=== PATIENT | female | born 1990 | race Caucasian/White ===

== ENCOUNTER 2017-03-24 06:11 | Inpatient (IN) | payer BC ==
[2017-03-24] MEDS ORDERED: Misoprostol 50 MCG (1/2 of 100 MCG) Tab ONE (08:17)
[2017-03-24] MEDS ORDERED: Sodium Chloride 0.9% 10 ML Syringe FLUSH PRN (08:45)
[2017-03-24] MEDS ORDERED: Acetaminophen 325 MG Tab PO PRN (08:45)
[2017-03-24] MEDS ORDERED: Ondansetron 4 MG/2 ML SDV IV PRN (08:45)
[2017-03-24] MEDS ORDERED: Clindamycin Phosphate 900 MG/6 ML SDV IV SCH (08:45)
[2017-03-24] MEDS ORDERED: Misoprostol 50 MCG (1/2 of 100 MCG) Tab VAG ONE (09:00)
[2017-03-24] MEDS ORDERED: Lactated Ringers 1,000 ML IV SCH (09:00)
--- NOTE | 2017-03-24 09:02 | PCM.LDHP ---
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 ovarian cyst history of. fibrous breast tissue Musculoskeletal History: Reports: Other (See Below) Other Musculoskeletal History: fracture left ring finger Neurological History: Reports: Concussion Psychiatric History: Reports: Anxiety, Depression, PTSD Hematologic History: Reports: Anemia - Infectious Disease History Infectious Disease History: Reports: Chicken Pox - Past Surgical History Neurological Surgical History: Reports: None Oncologic Surgical History: Reports: None Social & Family History - Family History Family Medical History: Noncontributory Cardiac: Reports: Heart Murmur Oncologic: Reports: Cervix, Lung - Tobacco Use Smoking Status *Q: Former Smoker Years of Tobacco use: 3 Used Tobacco, but Quit: Yes Month Tobacco Last Used: 3 years ago Second Hand Smoke Exposure: No - Caffeine Use Caffeine Use: Reports: Coffee Other Caffeine Use: minimal <8oz - Recreational Drug Use Recreational Drug Use: No H&P Review of Systems - Review of Systems: Review Of Systems: See Below General: Reports: No Symptoms HEENT: Reports: No Symptoms Pulmonary: Reports: No Symptoms Cardiovascular: Reports: No Symptoms Gastrointestinal: Reports: No Symptoms Genitourinary: Reports: No Symptoms Musculoskeletal: Reports: No Symptoms Skin: Reports: No Symptoms Psychiatric: Reports: Anxiety Neurological: Reports: No Symptoms Hematologic/Lymphatic: Reports: No Symptoms Immunologic: Reports: No Symptoms L&D Exam - Exam Exam: See Below - Vital Signs Weight: 80.286 kg - Montes Score Montes Score Cervix Position: Anterior Montes Score Consistency: Soft Montes Score Effacement: 51-70% Montes Score Dilation: 1-2 cm Montes Score Infant's Station: -2 Montes Score Total: 8 - Exam General: Alert, Oriented HEENT: PERRLA, Conjunctiva Clear, EACs Clear, EOMI, Hearing Intact, Mucosa Moist & [place], Nares Patent, Normal Nasal Septum, Posterior Pharynx Clear, TMs Clear Neck: Supple, Trachea Midline Lungs: Clear to Auscultation, Normal Respiratory Effort Cardiovascular: Regular Rate, Regular Rhythm GI/Abdominal Exam: Normal Bowel Sounds, Soft, Non-Tender, No Organomegaly, No Distention, No Abnormal Bruit, No Mass, Pelvis Stable Rectal Exam: Normal Exam, Normal Rectal Tone Genitourinary: Normal external exam, Normal bimanual exam, Normal speculum exam Back Exam: Normal Inspection, Full Range of Motion Extremities: Normal Inspection, Normal Range of Motion, Non-Tender, No Pedal Edema, Normal Capillary Refill Skin: Warm, Dry, Intact Neurological: Cranial Nerves Intact, Reflexes Equal Bilateral Psychiatric: Alert, Normal Affect, Normal Mood - Patient Data Lab Results Last 24 hrs: Laboratory Results - last 24 hr 03/24/17 Range/Units 06:27 Urine Color Yellow Urine Appearance Cloudy Urine pH 6.0 (4.5-8.0) Ur Specific [place] 1.020 (1.008-1.030) Urine Protein Negative (NEGATIVE) mg/dL Urine Glucose (UA) Normal (NEGATIVE) mg/dL Urine Ketones 15 H (NEGATIVE) mg/dL Urine Occult Blood Negative (NEGATIVE) Urine Nitrite Negative (NEGATIVE) Urine Bilirubin Negative (NEGATIVE) Urine Urobilinogen Normal (NORMAL) mg/dL Ur Leukocyte Esterase Moderate (NEGATIVE) Urine RBC 0-5 (0-5) Urine WBC 0-5 (0-5) Ur Epithelial Cells Moderate Amorphous Sediment Few Urine Bacteria Many Urine Mucus Few - Problem List (1) SNOMED Code(s): 43183395 ICD Code: Z34.90 - ENCNTR FOR SUPRVSN OF NORMAL , UNSP, UNSP TRIMESTER Status: Acute Current Visit: Yes (2) Elective induction of labor planned SNOMED Code(s): 234248723 ICD Code: LYF0414 - Status: Acute Current Visit: Yes (3) Post-dates SNOMED Code(s): 52792504 ICD Code: O48.0 - POST-TERM Status: Acute Current Visit: Yes Qualifiers: Post-term type: 40-42 weeks gestation Qualified Code(s): O48.0 - Post-term Problem List Initiated/Reviewed/Updated: Yes Orders Last 24hrs: Active Orders 24 hr Category Date Time Status Patient Status [ADT] Routine ADT 03/24/17 08:45 Ordered Ambulate [RC] PER UNIT ROUTINE Care 03/24/17 08:45 Ordered Communication Order [RC] ASDIRECTED Care 03/24/17 08:45 Ordered Heart Tones [RC] PER UNIT ROUTINE Care 03/24/17 08:45 Ordered Notify Provider Vital Signs [RC] PRN Care 03/24/17 08:45 Ordered Notify Provider [RC] PRN Care 03/24/17 08:45 Ordered Up ad [place] [RC] ASDIRECTED Care 03/24/17 08:45 Ordered VTE/DVT Education [RC] Click to Edit Care 03/24/17 08:53 Ordered Vaccines to be Administered [RC] PER UNIT ROUTINE Care 03/24/17 08:53 Active Vital Signs [RC] PER UNIT ROUTINE Care 03/24/17 08:45 Ordered Regular Diet [DIET] Diet 03/24/17 Breakfast Ordered CBC WITH AUTO DIFF [HEME] Routine Lab 03/24/17 08:45 Ordered DRUG SCREEN, URINE [URCHEM] Routine Lab 03/24/17 08:45 Uncollected UA W/MICROSCOPIC [URIN] Routine Lab 03/24/17 08:45 Uncollected Acetaminophen [Tylenol] Med 03/24/17 08:45 Ordered 650 mg PO Q4H PRN Clindamycin Phosphate [Cleocin] Med 03/24/17 08:45 Ordered 900 mg IV Q8H Diphth,Pertuss(Acell),Tet Vac [Adacel] Med 03/24/17 08:52 Once 0.5 ml IM .ONCE ONE Lactated Ringers [Ringers, Lactated] 1,000 ml Med 03/24/17 09:00 Ordered IV ASDIRECTED Misoprostol [Cytotec] Med 03/24/17 08:54 Once 50 mcg VAG ONETIME ONE Ondansetron [Zofran] Med 03/24/17 08:45 Ordered 4 mg IV Q4H PRN Sodium Chloride 0.9% [Saline Flush] Med 03/24/17 08:45 Ordered 10 ml FLUSH ASDIRECTED PRN DVT/VTE Prophylaxis Reflex [OM.PC] Routine Oth 03/24/17 08:45 Ordered Saline Lock Insert [OM.PC] Routine Oth 03/24/17 08:45 Ordered Resuscitation Status Routine Resus Stat 03/24/17 08:45 Ordered Medication Orders Acetaminophen (Tylenol) 650 mg PO Q4H PRN PRN Reason: Pain (Mild 1-3) and fever Clindamycin Phosphate (Cleocin) 900 mg IV Q8H JONAH Diphtheria/Tetanus/Acell Pertussis (Adacel) 0.5 ml IM .ONCE ONE Stop: 03/24/17 08:53 Lactated Ringer's (Ringers, Lactated) 1,000 mls @ 125 mls/hr IV ASDIRECTED JONAH Misoprostol (Cytotec) 50 mcg VAG ONETIME ONE Stop: 03/24/17 08:55 Ondansetron HCl (Zofran) 4 mg IV Q4H PRN PRN Reason: Nausea/Vomiting Sodium Chloride (Saline Flush) 10 ml FLUSH ASDIRECTED PRN PRN Reason: Keep Vein Open Assessment/Plan Comment:: 03/24/2017 26 yo here at 41 0/7 weeks gestation for a planned elective induction of labor for postdates SVE-1/60/-2 Cytotec 50mcg placed @ 0825 Bishops-8 Plan- Monitor for active labor Up and about Intermittent monitoring Pain management per patient request GBS positive-Clindamycin ever 8hrs till delivered Plan and anticipate a vaginal delivery
[2017-03-24] MEDS: Clindamycin Phosphate 900 MG in Sodium Chloride 0.9% 100 ML IV SCH ×2 (09:44→16:31)
[2017-03-24] MEDS ORDERED: Diphtheria,Pertussis(Acell),Tetanus Vaccine 0.5 ML SDV IM ONE (09:45)
[2017-03-24] MEDS ORDERED: Misoprostol 25 MCG (1/4 of 100 MCG) Tab ONE (12:44)
[2017-03-24] MEDS ORDERED: Misoprostol 25 MCG (1/4 of 100 MCG) Tab VAG ONE (13:05)
--- NOTE | 2017-03-24 13:12 | PCM.PNLD ---
Labor Progress Note - VS & Meds Vital Signs: Last Vital Signs Temp 35.4 C 03/24/17 10:30 Pulse 90 03/24/17 10:30 Resp 16 03/24/17 10:30 BP 120/66 03/24/17 10:30 Pulse Ox 96 03/24/17 10:30 Active Medications: Current Medications Acetaminophen (Tylenol) 650 mg PO Q4H PRN PRN Reason: Pain (Mild 1-3) and fever Lactated Ringer's (Ringers, Lactated) 1,000 mls @ 125 mls/hr IV ASDIRECTED [facility] Last Admin: 03/24/17 09:20 Dose: 125 mls/hr Clindamycin Phosphate 900 mg/ (Sodium Chloride) 106 mls @ 200 mls/hr IV Q8H [facility] Last Admin: 03/24/17 09:44 Dose: 200 mls/hr Misoprostol (Cytotec) 25 mcg VAG ONETIME ONE Stop: 03/24/17 13:06 Last Admin: 03/24/17 12:45 Dose: 25 mcg Ondansetron HCl (Zofran) 4 mg IV Q4H PRN PRN Reason: Nausea/Vomiting Sodium Chloride (Saline Flush) 10 ml FLUSH ASDIRECTED PRN PRN Reason: Keep Vein Open Discontinued Medications Diphtheria/Tetanus/Acell Pertussis (Adacel) 0.5 ml IM .ONCE ONE Stop: 03/24/17 09:46 Last Admin: 03/24/17 09:45 Dose: 0.5 ml Misoprostol (Cytotec) Confirm Administered Dose 50 mcg .ROUTE .STK-MED ONE Stop: 03/24/17 08:18 Last Admin: 03/24/17 09:19 Dose: Not Given Misoprostol (Cytotec) 50 mcg VAG ONETIME ONE Stop: 03/24/17 09:01 Last Admin: 03/24/17 08:25 Dose: 50 mcg Misoprostol (Cytotec) Confirm Administered Dose 25 mcg .ROUTE .STK-MED ONE Stop: 03/24/17 12:45 - Uterine Contractions Uterine Monitoring Mode: External [place] Contraction Frequency (min): 2-6 Contraction Duration (sec): 30- Contraction Intensity: Mild to Moderate Uterine Resting Tone: Soft - Vaginal Exam Dilation (cm): 1 Effacement (Percent): 60 Station: -2 Cervical Position: Anterior Sterile Vaginal Exam Performed By: Deann Bates - Labor Progress (Free Text) Labor Progress: 03/24/2017 Patient remains unchanged SVE Contractions still irregular at times FHTs category one Second cytotec this one 25mcg placed at this time Patient tolerating pain with movement and position change Plan- Continue to monitor for active labor Continue to monitor FHTs Pain management per patient request Plan and anticipate a vaginal delivery
[2017-03-24] MEDS ORDERED: ePHEDrine 50 MG/ML SDV ONE ×2 (16:10→16:13)
[2017-03-24] MEDS ORDERED: Ropivacaine 100 ML ONE (16:19)
[2017-03-24] MEDS ORDERED: Acetaminophen/HYDROcodone 325-5 MG Tab PO PRN (17:35)
[2017-03-24] MEDS ORDERED: Lanolin 100% Cream 40 GM Tube TOP PRN (17:35)
[2017-03-24] MEDS ORDERED: Witch Hazel Medicated Pads 100/Jar TOP PRN (17:35)
[2017-03-24] MEDS ORDERED: Docusate Sodium 100 MG Cap PO PRN (17:35)
[2017-03-24] MEDS ORDERED: Ibuprofen 200 MG Tab, 24 Tab Bulk Bottle PO PRN (17:35)
[2017-03-24] MEDS ORDERED: Ibuprofen 600 MG Tab PO PRN (17:35)
[2017-03-24] MEDS ORDERED: Benzocaine 20% Top Spray 56 GM Bottle TOP PRN (17:35)
[2017-03-24] MEDS ORDERED: Acetaminophen 325 MG Tab, 50 Tab Bulk Bottle PO PRN (17:35)
--- NOTE | 2017-03-24 18:11 | PCM.DEL ---
L & D Note - General Info Date of Service: 03/24/17 Mother's Due Date: 03/17/17 - Delivery Note Delivery Outcome: Livebirth Infant Delivery Method: Spontaneous Vaginal Delivery-Single Delivery Mode: Spontaneous Presentation: Right Occiput Anterior (SACHA) Nuchal Cord: None Anesthesia Type: Epidural Amniotic Fluid Description: Clear Laceration: None Placenta: Intact, Spontaneous, Meconium Stained (lightly) Cord: 3 Vessels [place]: Bulb Syringe, Stimulated, Warmed Second Stage Interventions: Reports: Encouragement Given, Pushing Effectively Delivery Comments (Free Text/Narrative):: 03/24/2017 26 yo at 41 0/7 gestational weeks delivered a viable female infant in SACHA position at 1717 on 03/24/2017 over an intact perineum, no nuchal cord. APGARS- 9/9/10, Weight-8lbs 4oz, Length-19.8inches, was placed on prewarmed blanket on mother abdomen, then stimulated, dried, warmed, and bulb suctioned before crying vigorously. Placenta spontaneous intact, three vessel cord. EBL- 300. No lacerations noted of perineum, vagina, cervix, or rectum. Infant now skin to skin and stable with mother in labor and delivery room. - General Info Date of Service: 03/24/17 Functional Status: Reports: Pain Controlled - Review of Systems General: Reports: No Symptoms HEENT: Reports: No Symptoms Pulmonary: Reports: No Symptoms Cardiovascular: Reports: No Symptoms Gastrointestinal: Reports: No Symptoms Genitourinary: Reports: No Symptoms Musculoskeletal: Reports: No Symptoms Skin: Reports: No Symptoms Neurological: Reports: No Symptoms Psychiatric: Reports: No Symptoms - Patient Data Vitals - Most Recent: Last Vital Signs Temp 35.6 C 03/24/17 12:50 Pulse 81 03/24/17 14:56 Resp 18 03/24/17 14:56 BP 137/72 03/24/17 14:56 Pulse Ox 96 03/24/17 14:56 Weight - Most Recent: 80.286 kg I&O - Last 24 Hours: Intake & Output 03/24/17 03/24/17 03/24/17 06:59 14:59 22:59 Intake Total 100 Balance 100 Lab Results Last 24 Hours: Laboratory Results - last 24 hr 03/24/17 03/24/17 03/24/17 Range/Units 06:27 08:45 08:56 WBC 11.1 H (4.5-11.0) K/uL RBC 3.88 (3.30-5.50) M/uL Hgb 10.9 L (12.0-15.0) g/dL Hct 33.0 L (36.0-48.0) % MCV 85 (80-98) fL MCH 28 (27-31) pg MCHC 33 (32-36) % Plt Count 179 (150-400) K/uL Neut % (Auto) 74 H (36-66) % Lymph % (Auto) 16 L (24-44) % [place] % (Auto) 10 H (2-6) % Eos % (Auto) 1 L (2-4) % Baso % (Auto) 0 (0-1) % Urine Color Yellow Urine Appearance Cloudy Urine pH 6.0 (4.5-8.0) Ur Specific [place] 1.020 (1.008-1.030) Urine Protein Negative (NEGATIVE) mg/dL Urine Glucose (UA) Normal (NEGATIVE) mg/dL Urine Ketones 15 H (NEGATIVE) mg/dL Urine Occult Blood Negative (NEGATIVE) Urine Nitrite Negative (NEGATIVE) Urine Bilirubin Negative (NEGATIVE) Urine Urobilinogen Normal (NORMAL) mg/dL Ur Leukocyte Esterase Moderate (NEGATIVE) Urine RBC 0-5 (0-5) Urine WBC 0-5 (0-5) Ur Epithelial Cells Moderate Amorphous Sediment Few Urine Bacteria Many Urine Mucus Few Urine Opiates Screen Negative (NEGATIVE) Ur Oxycodone Screen Negative (NEGATIVE) Urine Methadone Screen Negative (NEGATIVE) Ur Propoxyphene Screen Negative (NEGATIVE) Ur Barbiturates Screen Negative (NEGATIVE) Ur Tricyclics Screen Negative (NEGATIVE) Ur Phencyclidine Scrn Negative (NEGATIVE) Ur Amphetamine Screen Negative (NEGATIVE) U Methamphetamines Scrn Negative (NEGATIVE) Urine MDMA Screen Negative (NEGATIVE) U Benzodiazepines Scrn Negative (NEGATIVE) U Cocaine Metab Screen Negative (NEGATIVE) U Marijuana (THC) Screen Negative (NEGATIVE) Med Orders - Current: Current Medications Acetaminophen (Tylenol) 650 mg PO Q4H PRN PRN Reason: Pain (Mild 1-3) and fever Acetaminophen (Tylenol Bulk Bottle) 325 mg PO Q4H PRN PRN Reason: Pain Hydrocodone Bitart/Acetaminophen ([place] 325-5 Mg) 1 tab PO Q4H PRN PRN Reason: Pain (moderate 4-6) Benzocaine (Daaf-L-Hhbcdzw 20% [place]) 0 gm TOP Q4H PRN PRN Reason: Perineal Comfort Measure Docusate Sodium (Colace) 100 mg PO BID PRN PRN Reason: Constipation Emollient Ointment (Lansinoh Hpa) 0 gm TOP ASDIRECTED PRN PRN Reason: Sore Nipples Ferrous Sulfate (Ferrous Sulfate) [facility] Lactated Ringer's (Ringers, Lactated) 1,000 mls @ 125 mls/hr IV ASDIRECTED [facility] Last Admin: 03/24/17 09:20 Dose: 125 mls/hr Clindamycin Phosphate 900 mg/ (Sodium Chloride) 106 mls @ 200 mls/hr IV Q8H [facility] Last Admin: 03/24/17 16:31 Dose: 200 mls/hr Ibuprofen (Motrin Bulk Bottle) 600 mg PO Q6H PRN PRN Reason: Pain Ibuprofen (Motrin) 600 mg PO Q6H PRN PRN Reason: mild pain or fever Ondansetron HCl (Zofran) 4 mg IV Q4H PRN PRN Reason: Nausea/Vomiting Sodium Chloride (Saline Flush) 10 ml FLUSH ASDIRECTED PRN PRN Reason: Keep Vein Open [place] (Tucks) 1 pad TOP ASDIRECTED PRN PRN Reason: Hemorrhoids Discontinued Medications Diphtheria/Tetanus/Acell Pertussis (Adacel) 0.5 ml IM .ONCE ONE Stop: 03/24/17 09:46 Last Admin: 03/24/17 09:45 Dose: 0.5 ml Ephedrine Sulfate (Ephedrine Sulfate) Confirm Administered Dose 50 mg .ROUTE .STK-MED ONE Stop: 03/24/17 16:11 Ephedrine Sulfate (Ephedrine Sulfate) Confirm Administered Dose 50 mg .ROUTE .STK-MED ONE Stop: 03/24/17 16:14 Ropivacaine (Naropin 0.2%) Confirm Administered Dose 100 mls @ as directed .ROUTE .STK-MED ONE Stop: 03/24/17 16:20 Oxytocin/Sodium Chloride (Pitocin In Ns 20 Units/1,000 Ml) Confirm Administered Dose 20 unit in 1,000 mls @ as directed .ROUTE .STK-MED ONE Stop: 03/24/17 17:08 Oxytocin/Sodium Chloride (Pitocin In Ns 20 Units/1,000 Ml) 20 unit in 1,000 mls @ 2,997 mls/hr IV ONETIME ONE; 999 MUNITS/MIN PRN Reason: Protocol Stop: 03/24/17 18:02 Misoprostol (Cytotec) Confirm Administered Dose 50 mcg .ROUTE .STK-MED ONE Stop: 03/24/17 08:18 Last Admin: 03/24/17 09:19 Dose: Not Given Misoprostol (Cytotec) 50 mcg VAG ONETIME ONE Stop: 03/24/17 09:01 Last Admin: 03/24/17 08:25 Dose: 50 mcg Misoprostol (Cytotec) Confirm Administered Dose 25 mcg .ROUTE .STK-MED ONE Stop: 03/24/17 12:45 Last Admin: 03/24/17 13:08 Dose: Not Given Misoprostol (Cytotec) 25 mcg VAG ONETIME ONE Stop: 03/24/17 13:06 Last Admin: 03/24/17 12:45 Dose: 25 mcg - Exam General: Alert, Oriented HEENT: Pupils Equal, Pupils Reactive, EOMI, Mucous Membr. Moist/[place] Neck: Supple Lungs: Clear to Auscultation, Normal Respiratory Effort Cardiovascular: Regular Rate, Regular Rhythm GI/Abdominal Exam: Normal Bowel Sounds, Soft, Non-Tender, No Organomegaly, No Distention, No Abnormal Bruit, No Mass, Pelvis Stable (Female) Exam: Normal External Exam, Normal Speculum Exam, Normal Bimanual Exam Back Exam: Normal Inspection, Full Range of Motion Extremities: Normal Inspection, Normal Range of Motion, Non-Tender, No Pedal Edema, Normal Capillary Refill Skin: Warm, Dry, Intact Wound/Incisions: Healing Well Neurological: No New Focal Deficit Psy/Mental Status: Alert, Normal Affect, Normal Mood - Problem List & Annotations (1) SNOMED Code(s): 88932638 Code(s): Z34.90 - ENCNTR FOR SUPRVSN OF NORMAL , UNSP, UNSP TRIMESTER Status: Acute Current Visit: Yes (2) Elective induction of labor planned SNOMED Code(s): 253786535 Code(s): YXR3144 - Status: Acute Current Visit: Yes (3) Post-dates SNOMED Code(s): 45092686 Code(s): O48.0 - POST-TERM Status: Acute Current Visit: Yes Qualifiers: Post-term type: 40-42 weeks gestation Qualified Code(s): O48.0 - Post-term - Problem List Review Problem List Initiated/Reviewed/Updated: Yes - My Orders Last 24 Hours: My Active Orders 03/24/17 08:45 Patient Status [ADT] Routine Ambulate [RC] PER UNIT ROUTINE Communication Order [RC] ASDIRECTED Notify Provider Vital Signs [RC] PRN Notify Provider [RC] PRN Up ad [place] [RC] ASDIRECTED Vital Signs [RC] PER UNIT ROUTINE Acetaminophen [Tylenol] 650 mg PO Q4H PRN Ondansetron [Zofran] 4 mg IV Q4H PRN Sodium Chloride 0.9% [Saline Flush] 10 ml FLUSH ASDIRECTED PRN DVT/VTE Prophylaxis Reflex [OM.PC] Routine Saline Lock Insert [OM.PC] Routine Resuscitation Status Routine 03/24/17 08:53 VTE/DVT Education [RC] Click to Edit Vaccines to be Administered [RC] PER UNIT ROUTINE 03/24/17 09:00 Clindamycin Phosphate [Cleocin] 900 mg Sodium Chloride 0.9% [Normal Saline] 100 ml IV Q8H Lactated Ringers [Ringers, Lactated] 1,000 ml IV ASDIRECTED 03/24/17 17:35 Acetaminophen [Tylenol Bulk Bottle] 325 mg PO Q4H PRN Acetaminophen/HYDROcodone [[place] 325-5 MG] 1 tab PO Q4H PRN Benzocaine [Yafr-Q-Dacpvrz 20% [place]] See Dose Instructions TOP Q4H PRN Docusate Sodium [Colace] 100 mg PO BID PRN Ibuprofen [Motrin Bulk Bottle] 600 mg PO Q6H PRN Ibuprofen [Motrin] 600 mg PO Q6H PRN Lanolin [Lansinoh HPA] 0 gm TOP ASDIRECTED PRN Witch [place] [Tucks] 1 pad TOP ASDIRECTED PRN Assess Lochia [WOMSER] Per Unit Routine Assess Uterine Involution [WOMSER] Per Unit Routine 03/24/17 17:36 Patient Status [ADT] Routine Vital Signs [RC] PFP Ice Therapy [OM.PC] Per Unit Routine Perineal Care [OM.PC] Per Unit Routine 03/24/17 Breakfast Regular Diet [DIET] 03/25/17 06:00 CBC WITH AUTO DIFF [HEME] Routine 03/25/17 08:00 Ferrous Sulfate 325 mg PO WITHBREAKFAST - Assessment Assessment:: 03/24/2017 26 yo G2 now P2 @ 41 0/7 weeks gestation without complications Labs-GBS positive, B positive, Rubella Immune, RPR nonreactive, HIV negative, Hep B negative - Plan Plan:: 03/24/2017 26 yo here at 41 0/7 weeks gestation for a planned elective induction of labor for postdates SVE-1/60/-2 Cytotec 50mcg placed @ 0825 Bishops-8 Plan- Monitor for active labor Up and about Intermittent monitoring Pain management per patient request GBS positive-Clindamycin ever 8hrs till delivered Plan and anticipate a vaginal delivery 03/24/2017 Routine Cares Support and Encourage Plan discharge at 48hrs due to GBS positive
[2017-03-24] MEDS ORDERED: diphenhydrAMINE 50 MG/ML SDV IVPUSH PRN (19:40)
--- NOTE | 2017-03-24 23:30 | ANES ---
DATE OF SERVICE: 03/24/2017 INDICATIONS: Nerissa is a 26-year-old female, patient of Deann Bates in our OB unit, [facility] #[id number]. Please refer to Deann's note for diagnosis. I was requested to assess to the patient for labor epidural. I reviewed the patient's history as well as risks and benefits of the procedure and lab work, found no contraindication to epidural placement. Consent was received. DESCRIPTION OF PROCEDURE: I had her seated at the edge of the bed. Betadine prep x3 to lumbar region. Sterile drape was placed, 1% lidocaine skin wheal as well as deep at the L3- 4 region. 17-gauge Tuohy was placed to loss of resistance. Negative CSF, negative heme, negative paresthesia. I inserted the catheter to 13 cm. The needle was removed, catheter was secured and test dose was given of 3 mL of 1.5% lidocaine with 1:200,000 epinephrine. Negative sequelae. I then dosed with 12 mL of 0.2% ropivacaine and began an infusion of that same 0.2% ropivacaine. She tolerated the procedure quite well. Please refer to nurse's notes for vital signs and neuro status, which were unchanged. Upon completion, I reported off to nurse and Deann Bates, again, the patient tolerated procedure quite well. Matt Bunch CRNA /[id number]
[2017-03-25] MEDS ORDERED: Acetaminophen 325 MG Tab, 50 Tab Bulk Bottle PO PRN (07:00)
--- NOTE | 2017-03-25 07:57 | PCM.PNPP ---
- General Info Date of Service: 03/25/17 Admission Dx/Problem (Free Text): Patient Status Order with Admit Dx/Problem 03/24/17 08:45 Patient Status [ADT] Routine Admission Diagnosis/Problem Admission Diagnosis/Problem Functional Status: Reports: Pain Controlled - Review of Systems General: Reports: No Symptoms HEENT: Reports: No Symptoms Pulmonary: Reports: No Symptoms Cardiovascular: Reports: No Symptoms Gastrointestinal: Reports: No Symptoms Genitourinary: Reports: No Symptoms Musculoskeletal: Reports: No Symptoms Skin: Reports: No Symptoms Neurological: Reports: No Symptoms Psychiatric: Reports: No Symptoms - General Info Date of Service: 03/25/17 - Patient Data Vital Signs - Most Recent: Last Vital Signs Temp 36.2 C 03/25/17 04:14 Pulse 65 03/25/17 04:14 Resp 16 03/25/17 04:14 BP 119/67 03/25/17 04:14 Pulse Ox 99 03/25/17 04:14 Weight - Most Recent: 80.286 kg I&O - Last 24 Hours: Intake & Output 03/24/17 03/25/17 03/25/17 22:59 06:59 14:59 Intake Total 1436 500 Balance 1436 500 Lab Results - Last 24 Hours: Laboratory Results - last 24 hr 03/24/17 03/24/17 03/25/17 Range/Units 08:45 08:56 06:00 WBC 11.1 H 15.6 H (4.5-11.0) K/uL RBC 3.88 3.63 (3.30-5.50) M/uL Hgb 10.9 L 10.4 L (12.0-15.0) g/dL Hct 33.0 L 30.8 L (36.0-48.0) % MCV 85 85 (80-98) fL MCH 28 29 (27-31) pg MCHC 33 34 (32-36) % Plt Count 179 133 L (150-400) K/uL Neut % (Auto) 74 H 81 H (36-66) % Lymph % (Auto) 16 L 13 L (24-44) % [place] % (Auto) 10 H 6 (2-6) % Eos % (Auto) 1 L 0 L (2-4) % Baso % (Auto) 0 0 (0-1) % Urine Opiates Screen Negative (NEGATIVE) Ur Oxycodone Screen Negative (NEGATIVE) Urine Methadone Screen Negative (NEGATIVE) Ur Propoxyphene Screen Negative (NEGATIVE) Ur Barbiturates Screen Negative (NEGATIVE) Ur Tricyclics Screen Negative (NEGATIVE) Ur Phencyclidine Scrn Negative (NEGATIVE) Ur Amphetamine Screen Negative (NEGATIVE) U Methamphetamines Scrn Negative (NEGATIVE) Urine MDMA Screen Negative (NEGATIVE) U Benzodiazepines Scrn Negative (NEGATIVE) U Cocaine Metab Screen Negative (NEGATIVE) U Marijuana (THC) Screen Negative (NEGATIVE) Med Orders - Current: Current Medications Acetaminophen (Tylenol Bulk Bottle) 325 - 650 mg PO Q4H PRN PRN Reason: Pain Hydrocodone Bitart/Acetaminophen ([place] 325-5 Mg) 1 tab PO Q4H PRN PRN Reason: Pain (moderate 4-6) Benzocaine (Xogz-[id number]-Spzvxni 20% [place]) 0 gm TOP Q4H PRN PRN Reason: Perineal Comfort Measure Diphenhydramine HCl (Benadryl) 25 mg IVPUSH Q6H PRN PRN Reason: ITCHING Docusate Sodium (Colace) 100 mg PO BID PRN PRN Reason: Constipation Emollient Ointment (Lansinoh Hpa) 0 gm TOP ASDIRECTED PRN PRN Reason: Sore Nipples Last Admin: 03/24/17 21:36 Dose: 1 applic Ferrous Sulfate (Ferrous Sulfate) 325 mg PO WITHBREAKFAST [facility] Lactated Ringer's (Ringers, Lactated) 1,000 mls @ 125 mls/hr IV ASDIRECTED [facility] Last Admin: 03/24/17 09:20 Dose: 125 mls/hr Ibuprofen (Motrin Bulk Bottle) 600 mg PO Q6H PRN PRN Reason: Pain Last Admin: 03/24/17 21:36 Dose: 600 mg Ondansetron HCl (Zofran) 4 mg IV Q4H PRN PRN Reason: Nausea/Vomiting Sodium Chloride (Saline Flush) 10 ml FLUSH ASDIRECTED PRN PRN Reason: Keep Vein Open Witch Jeniffer (Tucks) 1 pad TOP ASDIRECTED PRN PRN Reason: Hemorrhoids Discontinued Medications Acetaminophen (Tylenol) 650 mg PO Q4H PRN PRN Reason: Pain (Mild 1-3) and fever Acetaminophen (Tylenol Bulk Bottle) 325 mg PO Q4H PRN PRN Reason: Pain Diphtheria/Tetanus/Acell Pertussis (Adacel) 0.5 ml IM .ONCE ONE Stop: 03/24/17 09:46 Last Admin: 03/24/17 09:45 Dose: 0.5 ml Ephedrine Sulfate (Ephedrine Sulfate) Confirm Administered Dose 50 mg .ROUTE .STK-MED ONE Stop: 03/24/17 16:11 Last Admin: 03/24/17 19:48 Dose: Not Given Ephedrine Sulfate (Ephedrine Sulfate) Confirm Administered Dose 50 mg .ROUTE .STK-MED ONE Stop: 03/24/17 16:14 Last Admin: 03/24/17 19:48 Dose: Not Given Clindamycin Phosphate 900 mg/ (Sodium Chloride) 106 mls @ 200 mls/hr IV Q8H JONAH Last Admin: 03/24/17 16:31 Dose: 200 mls/hr Ropivacaine (Naropin 0.2%) Confirm Administered Dose 100 mls @ as directed .ROUTE .STK-MED ONE Stop: 03/24/17 16:20 Oxytocin/Sodium Chloride (Pitocin In Ns 20 Units/1,000 Ml) Confirm Administered Dose 20 unit in 1,000 mls @ as directed .ROUTE .STK-MED ONE Stop: 03/24/17 17:08 Last Admin: 03/24/17 19:49 Dose: Not Given Oxytocin/Sodium Chloride (Pitocin In Ns 20 Units/1,000 Ml) 20 unit in 1,000 mls @ 2,997 mls/hr IV ONETIME ONE; 999 MUNITS/MIN PRN Reason: Protocol Stop: 03/24/17 18:02 Ibuprofen (Motrin) 600 mg PO Q6H PRN PRN Reason: mild pain or fever Last Admin: 03/24/17 18:47 Dose: 600 mg Misoprostol (Cytotec) Confirm Administered Dose 50 mcg .ROUTE .STK-MED ONE Stop: 03/24/17 08:18 Last Admin: 03/24/17 09:19 Dose: Not Given Misoprostol (Cytotec) 50 mcg VAG ONETIME ONE Stop: 03/24/17 09:01 Last Admin: 03/24/17 08:25 Dose: 50 mcg Misoprostol (Cytotec) Confirm Administered Dose 25 mcg .ROUTE .STK-MED ONE Stop: 03/24/17 12:45 Last Admin: 03/24/17 13:08 Dose: Not Given Misoprostol (Cytotec) 25 mcg VAG ONETIME ONE Stop: 03/24/17 13:06 Last Admin: 03/24/17 12:45 Dose: 25 mcg - Interaction Infant Disposition, : [place] in Room with Family Interaction: Holding Feeding: Breastfed ; Nursed Well Support Person: - Recovery Exam Fundal Tone: Firm Fundal Level: 1 Fingerbreadths Below Umbilicus Fundal Placement: Right Lochia Amount: Small Lochia Color: Rubra/Red Perineum Description: Intact, Minimal Bruising/Swelling Episiotomy/Laceration: None - Exam General: Alert, Oriented HEENT: Pupils Equal Neck: Supple Lungs: Clear to Auscultation, Normal Respiratory Effort Cardiovascular: Regular Rate, Regular Rhythm GI/Abdominal Exam: Normal Bowel Sounds, Soft, Non-Tender, No Organomegaly, No Distention, No Abnormal Bruit, No Mass, Pelvis Stable Extremities: Normal Inspection, Normal Range of Motion, Non-Tender, No Pedal Edema, Normal Capillary Refill Skin: Warm, Dry, Intact Neurological: No New Focal Deficit Psy/Mental Status: Alert, Normal Affect, Normal Mood - Problem List & Annotations (1) SNOMED Code(s): 57832415 Code(s): Z34.90 - ENCNTR FOR SUPRVSN OF NORMAL , UNSP, UNSP TRIMESTER Status: Acute Current Visit: Yes (2) Elective induction of labor planned SNOMED Code(s): 283683435 Code(s): JRH0357 - Status: Acute Current Visit: Yes (3) Post-dates SNOMED Code(s): 86449987 Code(s): O48.0 - POST-TERM Status: Acute Current Visit: Yes Qualifiers: Post-term type: 40-42 weeks gestation Qualified Code(s): O48.0 - Post-term (4) () SNOMED Code(s): 095801380 Code(s): Z78.9 - OTHER SPECIFIED HEALTH STATUS Status: Acute Current Visit: Yes (5) Normal vaginal delivery SNOMED Code(s): 78375466 Code(s): O80 - ENCOUNTER FOR FULL-TERM UNCOMPLICATED DELIVERY Status: Acute Current Visit: Yes (6) Positive GBS test SNOMED Code(s): 4737557505144 Code(s): B95.1 - STREPTOCOCCUS, GROUP B, CAUSING DISEASES CLASSD ELSWHR Status: Acute Current Visit: Yes - Problem List Review Problem List Initiated/Reviewed/Updated: Yes - My Orders Last 24 Hours: My Active Orders 03/24/17 08:45 Patient Status [ADT] Routine Ambulate [RC] PER UNIT ROUTINE Notify Provider Vital Signs [RC] PRN Notify Provider [RC] PRN Up ad [place] [RC] ASDIRECTED Vital Signs [RC] Q4H Ondansetron [Zofran] 4 mg IV Q4H PRN Sodium Chloride 0.9% [Saline Flush] 10 ml FLUSH ASDIRECTED PRN DVT/VTE Prophylaxis Reflex [OM.PC] Routine Saline Lock Insert [OM.PC] Routine Resuscitation Status Routine 03/24/17 08:53 VTE/DVT Education [RC] Click to Edit Vaccines to be Administered [RC] PER UNIT ROUTINE 03/24/17 09:00 Lactated Ringers [Ringers, Lactated] 1,000 ml IV ASDIRECTED 03/24/17 17:35 Acetaminophen/HYDROcodone [[place] 325-5 MG] 1 tab PO Q4H PRN Benzocaine [Pown-K-Tandxrj 20% [place]] See Dose Instructions TOP Q4H PRN Docusate Sodium [Colace] 100 mg PO BID PRN Ibuprofen [Motrin Bulk Bottle] 600 mg PO Q6H PRN Lanolin [Lansinoh HPA] 0 gm TOP ASDIRECTED PRN Witch Jeniffer [Tucks] 1 pad TOP ASDIRECTED PRN Assess Lochia [WOMSER] Per Unit Routine Assess Uterine Involution [WOMSER] Per Unit Routine 03/24/17 17:36 Patient Status [ADT] Routine Ice Therapy [OM.PC] Per Unit Routine Perineal Care [OM.PC] Per Unit Routine 03/24/17 19:40 diphenhydrAMINE [Benadryl] 25 mg IVPUSH Q6H PRN 03/24/17 Breakfast Regular Diet [DIET] 03/25/17 07:00 Acetaminophen [Tylenol Bulk Bottle] 325 - 650 mg PO Q4H PRN 03/25/17 08:00 Ferrous Sulfate 325 mg PO WITHBREAKFAST - Assessment Assessment:: 03/24/2017 26 yo G2 now P2 @ 41 0/7 weeks gestation without complications Labs-GBS positive, B positive, Rubella Immune, RPR nonreactive, HIV negative, Hep B negative -------- 03/25/2017 Day One Well Fundus firm and bleeding decreasing Hgb-10.4 today down from 10.9 yesterday Voiding and passing gas Discharge tomorrow due to GBS positive - Plan Plan:: 03/24/2017 26 yo here at 41 0/7 weeks gestation for a planned elective induction of labor for postdates SVE-1/60/-2 Cytotec 50mcg placed @ 0825 [place]-8 Plan- Monitor for active labor Up and about Intermittent monitoring Pain management per patient request GBS positive-Clindamycin ever 8hrs till delivered Plan and anticipate a vaginal delivery 03/24/2017 Routine Cares Support and Encourage Plan discharge at 48hrs due to GBS positive 03/25/2017 Continue routine cares Continue to support and encourage Plan discharge at 48 hrs due to GBS positive
[2017-03-25] MEDS: Ferrous Sulfate 325 MG Tab PO SCH (10:41)
--- NOTE | 2017-03-26 08:28 | PCM.PNPP ---
- General Info Date of Service: 03/26/17 Admission Dx/Problem (Free Text): Patient Status Order with Admit Dx/Problem 03/24/17 08:45 Patient Status [ADT] Routine Admission Diagnosis/Problem Admission Diagnosis/Problem Functional Status: Reports: Pain Controlled - Review of Systems General: Reports: No Symptoms HEENT: Reports: No Symptoms Pulmonary: Reports: No Symptoms Cardiovascular: Reports: No Symptoms Gastrointestinal: Reports: No Symptoms Genitourinary: Reports: No Symptoms Musculoskeletal: Reports: No Symptoms Skin: Reports: No Symptoms Neurological: Reports: No Symptoms Psychiatric: Reports: No Symptoms - General Info Date of Service: 03/26/17 - Patient Data Vital Signs - Most Recent: Last Vital Signs Temp 36.6 C 03/26/17 03:00 Pulse 69 03/26/17 03:00 Resp 16 03/26/17 03:00 BP 112/55 L 03/26/17 03:00 Pulse Ox 98 03/26/17 03:00 Weight - Most Recent: 80.286 kg Med Orders - Current: Current Medications Acetaminophen (Tylenol Bulk Bottle) 325 - 650 mg PO Q4H PRN PRN Reason: Pain Hydrocodone Bitart/Acetaminophen ([place] 325-5 Mg) 1 tab PO Q4H PRN PRN Reason: Pain (moderate 4-6) Benzocaine ([id number]-[id number] 20% [place]) 0 gm TOP Q4H PRN PRN Reason: Perineal Comfort Measure Diphenhydramine HCl (Benadryl) 25 mg IVPUSH Q6H PRN PRN Reason: ITCHING Docusate Sodium (Colace) 100 mg PO BID PRN PRN Reason: Constipation Emollient Ointment (Lansinoh Hpa) 0 gm TOP ASDIRECTED PRN PRN Reason: Sore Nipples Last Admin: 03/24/17 21:36 Dose: 1 applic Ferrous Sulfate (Ferrous Sulfate) 325 mg PO WITHBREAKFAST JONAH Last Admin: 03/25/17 10:41 Dose: 325 mg Lactated Ringer's (Ringers, Lactated) 1,000 mls @ 125 mls/hr IV ASDIRECTED JONAH Last Admin: 03/24/17 09:20 Dose: 125 mls/hr Ibuprofen (Motrin Bulk Bottle) 600 mg PO Q6H PRN PRN Reason: Pain Last Admin: 03/24/17 21:36 Dose: 600 mg Ondansetron HCl (Zofran) 4 mg IV Q4H PRN PRN Reason: Nausea/Vomiting Sodium Chloride (Saline Flush) 10 ml FLUSH ASDIRECTED PRN PRN Reason: Keep Vein Open [place] (Tucks) 1 pad TOP ASDIRECTED PRN PRN Reason: Hemorrhoids Discontinued Medications Acetaminophen (Tylenol) 650 mg PO Q4H PRN PRN Reason: Pain (Mild 1-3) and fever Acetaminophen (Tylenol Bulk Bottle) 325 mg PO Q4H PRN PRN Reason: Pain Diphtheria/Tetanus/Acell Pertussis (Adacel) 0.5 ml IM .ONCE ONE Stop: 03/24/17 09:46 Last Admin: 03/24/17 09:45 Dose: 0.5 ml Ephedrine Sulfate (Ephedrine Sulfate) Confirm Administered Dose 50 mg .ROUTE .STK-MED ONE Stop: 03/24/17 16:11 Last Admin: 03/24/17 19:48 Dose: Not Given Ephedrine Sulfate (Ephedrine Sulfate) Confirm Administered Dose 50 mg .ROUTE .STK-MED ONE Stop: 03/24/17 16:14 Last Admin: 03/24/17 19:48 Dose: Not Given Clindamycin Phosphate 900 mg/ (Sodium Chloride) 106 mls @ 200 mls/hr IV Q8H JONAH Last Admin: 03/24/17 16:31 Dose: 200 mls/hr Ropivacaine (Naropin 0.2%) Confirm Administered Dose 100 mls @ as directed .ROUTE .STK-MED ONE Stop: 03/24/17 16:20 Oxytocin/Sodium Chloride (Pitocin In Ns 20 Units/1,000 Ml) Confirm Administered Dose 20 unit in 1,000 mls @ as directed .ROUTE .STK-MED ONE Stop: 03/24/17 17:08 Last Admin: 03/24/17 19:49 Dose: Not Given Oxytocin/Sodium Chloride (Pitocin In Ns 20 Units/1,000 Ml) 20 unit in 1,000 mls @ 2,997 mls/hr IV ONETIME ONE; 999 MUNITS/MIN PRN Reason: Protocol Stop: 03/24/17 18:02 Ibuprofen (Motrin) 600 mg PO Q6H PRN PRN Reason: mild pain or fever Last Admin: 03/24/17 18:47 Dose: 600 mg Misoprostol (Cytotec) Confirm Administered Dose 50 mcg .ROUTE .STK-MED ONE Stop: 03/24/17 08:18 Last Admin: 03/24/17 09:19 Dose: Not Given Misoprostol (Cytotec) 50 mcg VAG ONETIME ONE Stop: 03/24/17 09:01 Last Admin: 03/24/17 08:25 Dose: 50 mcg Misoprostol (Cytotec) Confirm Administered Dose 25 mcg .ROUTE .STK-MED ONE Stop: 03/24/17 12:45 Last Admin: 03/24/17 13:08 Dose: Not Given Misoprostol (Cytotec) 25 mcg VAG ONETIME ONE Stop: 03/24/17 13:06 Last Admin: 03/24/17 12:45 Dose: 25 mcg - Infant Interaction Disposition, : [place] in Room with Family Interaction: Holding Infant Feeding: Breastfed ; Nursed Well Support Person: - Recovery Exam Fundal Tone: Firm Fundal Level: 1 Fingerbreadths Below Umbilicus Fundal Placement: Left Lochia Amount: Scant Lochia Color: Rubra/Red Perineum Description: Intact, Minimal Bruising/Swelling Episiotomy/Laceration: None Urinary Elimination: Voided - Exam General: Alert, Oriented HEENT: Pupils Equal Neck: Supple Lungs: Clear to Auscultation, Normal Respiratory Effort Cardiovascular: Regular Rate, Regular Rhythm GI/Abdominal Exam: Normal Bowel Sounds, Soft, Non-Tender, No Organomegaly, No Distention, No Abnormal Bruit, No Mass, Pelvis Stable Extremities: Normal Inspection, Normal Range of Motion, Non-Tender, No Pedal Edema, Normal Capillary Refill Skin: Warm, Dry, Intact Neurological: No New Focal Deficit Psy/Mental Status: Alert, Normal Affect, Normal Mood - Problem List & Annotations (1) SNOMED Code(s): 22659427 Code(s): Z34.90 - ENCNTR FOR SUPRVSN OF NORMAL , UNSP, UNSP TRIMESTER Status: Acute Current Visit: Yes Qualifiers: Weeks of gestation: 41 weeks Qualified Code(s): Z3A.41 - 41 weeks gestation of (2) Elective induction of labor planned SNOMED Code(s): 822817246 Code(s): PLQ9790 - Status: Acute Current Visit: Yes (3) Post-dates SNOMED Code(s): 43675373 Code(s): O48.0 - POST-TERM Status: Acute Current Visit: Yes Qualifiers: Post-term type: 40-42 weeks gestation Qualified Code(s): O48.0 - Post-term (4) () SNOMED Code(s): 489208360 Code(s): Z78.9 - OTHER SPECIFIED HEALTH STATUS Status: Acute Current Visit: Yes (5) Normal vaginal delivery SNOMED Code(s): 69365609 Code(s): O80 - ENCOUNTER FOR FULL-TERM UNCOMPLICATED DELIVERY Status: Acute Current Visit: Yes (6) Positive GBS test SNOMED Code(s): 8590161824548 Code(s): B95.1 - STREPTOCOCCUS, GROUP B, CAUSING DISEASES CLASSD ELSWHR Status: Acute Current Visit: Yes - Problem List Review Problem List Initiated/Reviewed/Updated: Yes - My Orders Last 24 Hours: My Active Orders 03/25/17 08:00 Ferrous Sulfate 325 mg PO WITHBREAKFAST - Assessment Assessment:: 03/24/2017 26 yo G2 now P2 @ 41 0/7 weeks gestation without complications Labs-GBS positive, B positive, Rubella Immune, RPR nonreactive, HIV negative, Hep B negative -------- 03/25/2017 Day One Well Fundus firm and bleeding decreasing Hgb-10.4 today down from 10.9 yesterday Voiding and passing gas Discharge tomorrow due to GBS positive 03/26/2017 Day Two well Fundus firm and bleeding decreasing Voiding and passing gas Discharge this evening at 48hrs due to GBS positive - Plan Plan:: 03/24/2017 26 yo here at 41 0/7 weeks gestation for a planned elective induction of labor for postdates SVE-1/60/-2 Cytotec 50mcg placed @ 0825 [place]-8 Plan- Monitor for active labor Up and about Intermittent monitoring Pain management per patient request GBS positive-Clindamycin ever 8hrs till delivered Plan and anticipate a vaginal delivery 03/24/2017 Routine Cares Support and Encourage Plan discharge at 48hrs due to GBS positive 03/25/2017 Continue routine cares Continue to support and encourage Plan discharge at 48 hrs due to GBS positive 03/26/2017 Continue Routine Cares Continue to support and encourage Discharge this evening at 48hrs related to GBS To see Annika in 6 weeks for Visit
[2017-03-26 09:11] VITALS: BP 130/73
[2017-03-26] MEDS: Ferrous Sulfate 325 MG Tab PO SCH (14:42)
== END 2017-03-26 15:55 | disposition home or self-care (01) | DRG 560 ==
LOC: JP.OB 06:11 → OBSVTOIN 17:17 → JP.MS 19:51
PROVIDERS: ADMIT Advanced Practice Midwife; ATTEND Advanced Practice Midwife
PROC: 10E0XZZ Delivery of Products of Conception, External Approach (ICD-10-PCS; principal; 2017-03-24)
PROC: 3E0P3VZ Introduction of Hormone into Female Reproductive, Percutaneous Approach (ICD-10-PCS; 2017-03-24)
PROC: 3E0P7VZ Introduction of Hormone into Female Reproductive, Via Natural or Artificial Opening (ICD-10-PCS; 2017-03-24)
PROC: 00HU33Z Insertion of Infusion Device into Spinal Canal, Percutaneous Approach (ICD-10-PCS; 2017-03-24)
DX: O48.0 Post-term pregnancy (principal); Z3A.41 41 weeks gestation of pregnancy; O99.824 Streptococcus B carrier state complicating childbirth; O77.0 Labor and delivery complicated by meconium in amniotic fluid; Z37.0 Single live birth; Z88.1 Allergy status to other antibiotic agents; Z87.891 Personal history of nicotine dependence; Z23 Encounter for immunization
CPT/HCPCS: 36415; 59409; 80305; 81001; 85025; 90471; 90715; A9270-GY; J2795; J7030; J7120; S0077